=== PATIENT | male | born 1995 | race Caucasian/White ===

== ENCOUNTER 2017-04-22 13:45 | Emergency (ER) | payer OTHER ==
[2017-04-22 13:52] VITALS: RESP 18
--- NOTE | 2017-04-22 14:25 | XR ---
EXAMINATION TYPE: XR hand complete RT DATE OF EXAM: 04/22/2017 CLINICAL HISTORY: Right hand pain into wrist. TECHNIQUE: Frontal, lateral and oblique images of the right hand are obtained. COMPARISON: None. FINDINGS: There is no acute fracture/dislocation evident in the right hand. The joint spaces in the right hand appear within normal limits. The overlying soft tissue appears unremarkable. IMPRESSION: Unremarkable study.
--- NOTE | 2017-04-22 14:37 | ED ---
Upper Extremity HPI - General Chief Complaint: Extremity Injury, Upper Stated Complaint: Arm Pain Time Seen by Provider: 04/22/17 14:00 Source: patient, RN notes reviewed Mode of arrival: ambulatory Limitations: no limitations - History of Present Illness Initial Comments: This is a 21-year-old male who presents to the emergency department with chief complaint of right hand pain. He denies any specific injury or trauma. Patient states that he has been experiencing pain for one week. He states the pain is localized to the fourth and fifth digits of right hand with radiation to wrist and occasionally up to right elbow. He states that the pain is worse with movement and he has difficulty grasping objects. Patient states that when he does experience pain in the hand, his entire hand feels numb and there is tingling on the dorsal aspect of right hand. Denies fever, chills, chest pain, shortness of breath, abdominal pain, nausea or vomiting, constipation or diarrhea, dysuria or hematuria, headache or vision changes. - Related Data Home Medications Medication Instructions Recorded Confirmed No Known Home Medications [No 04/22/17 04/22/17 Known Home Medications] Allergies Allergy/AdvReac Type Severity Reaction Status Date / Time ibuprofen [From Motrin] Allergy Rash/Hives Verified 04/22/17 14:02 Review of Systems ROS Statement: Those systems with pertinent positive or pertinent negative responses have been documented in the HPI. ROS Other: All systems not noted in ROS Statement are negative. Past Medical History Past Medical History: No Reported History History of Any Multi-Drug Resistant Organisms: None Reported Past Surgical History: Ear Surgery Additional Past Surgical History / Comment(s): tubes in ears Past Psychological History: ADD/ADHD, Anxiety, Depression Smoking Status: Current every day smoker Past Alcohol Use History: Rare Past Drug Use History: None Reported General Exam - General Exam Comments Initial Comments: General: Awake and alert, well-developed; in no apparent distress. HEENT: Head atraumatic, normocephalic. Pupils are equal, round and reactive to light. Extraocular movements intact. Oropharynx moist without erythema or exudate. Neck: Supple. Normal ROM. Cardiovascular: Regular rate and rhythm. No murmurs, rubs or gallops. Chest symmetrical. Respiratory: Lungs clear to auscultation bilaterally. No wheezes, rales or rhonchi. Normal respiratory effort with no use of accessory muscles. Musculoskeletal: Tenderness to palpation of right 5th MCP joint with mild swelling. No erythema or deformities noted. Normal ROM of right hand and wrist. Sensation intact. Radial pulses 2+ equal and palpable bilaterally. Skin: [place], warm and dry without rashes or lesions. Neurological: Alert and oriented x3. CN II-XII grossly intact. Speech is fluent and answers are appropriate. No focal neuro deficits. Psychiatric: Normal mood and affect. No overt signs of depression or anxiety noted. Limitations: no limitations Course Vital Signs 04/22/17 13:48 Temperature 98.4 F Pulse Rate 80 Respiratory 18 Rate Blood Pressure 163/97 O2 Sat by Pulse 99 Oximetry Medical Decision Making - Medical Decision Making This is a 21-year-old male who presents with complaint of pain at ulnar aspect of right hand. X-ray revealed no acute abnormalities. Patient requests an SAMEERA bandage for extra support. He will be discharged home with recommendation to follow-up with a primary care provider. Patient is in agreement to the plan and voices understanding. All questions were answered. - Radiology Data Radiology results: report reviewed Right hand x-ray findings: There is no acute fracture/dislocation evident in the right hand. The joint spaces in the right hand appears within normal limits. The overlying soft tissue appears unremarkable. Disposition Clinical Impression: Right hand pain Disposition: HOME SELF-CARE Condition: Good Instructions: Peripheral Neuropathy (ED) Additional Instructions: Please follow up with orthopedics, Dr. Weeks within 1-2 days. Please follow up with primary care provider within 1-2 days. Return to emergency department if symptoms should worsen or any concerns arise. Referrals: None,Stated [Primary Care Provider] - 1-2 days Lucien Weeks MD [STAFF PHYSICIAN] - 1-2 days Time of Disposition: 14:57
[2017-04-22 14:52] VITALS: BP 138/86; PULSE 78; TEMP 98.1
== END 2017-04-22 15:00 | disposition home or self-care (01) ==
LOC: EC 13:45
DX: M79.641 Pain in right hand (principal); M79.89 Other specified soft tissue disorders; M79.644 Pain in right finger(s); M25.531 Pain in right wrist; M25.521 Pain in right elbow; F17.200 Nicotine dependence, unspecified, uncomplicated; Z88.6 Allergy status to analgesic agent
CPT/HCPCS: 99283

== ENCOUNTER 2018-08-13 11:36 | Emergency (ER) | payer OTHER ==
[2018-08-13 11:43] VITALS: RESP 18
[2018-08-13] MEDS ORDERED: HYDROcodone/APAP 7.5-325MG 1 EACH TAB PO ONE (12:06)
[2018-08-13] MEDS ORDERED: methylPREDNISolone SOD SUCCI 125 MG/2 ML VIAL IM ONE (12:06)
--- NOTE | 2018-08-13 12:11 | ED ---
General Adult HPI - General Chief complaint: Back Pain/Injury Stated complaint: Knee and back pain Time Seen by Provider: 08/13/18 11:54 Source: patient, RN notes reviewed, old records reviewed Mode of arrival: ambulatory Limitations: no limitations - History of Present Illness Initial comments: 23-year-old male patient passed medical history of chronic lumbar back pain presents to ED approximately 2 day exacerbation of lumbar back pain. Patient reports that it is As well as his right paralumbar region. Patient reports that he has had some tingling down both his legs. Patient denies any recent falls or trauma, strenuous exercise in the past 3 days. Patient reports that he has however been painting his house which does require some strain in back. Patient has a separate complaint of approximately 1 month of right knee pain. Patient describes this as a dull pain. Patient reports it is worse with exertion. Patient denies any injury to right knee. Patient denies any loss of bowel or bladder control, fever/chills, IV drug use, lower extremity weakness. Patient is ambulatory. Patient denies other complaints. Systemic: Pt denies fatigue, fever/chills, rash. Pt denies weakness, night sweats, weight loss. Neuro: Pt denies headache, visual disturbances, syncope or pre-syncope. HEENT: Pt denies ocular discharge or irritation, otalgia, rhinorrhea, pharyngitis or notable lymphadenopathy. Cardiopulmonary: Pt denies chest pain, SOB, heart palpitations, dyspnea on exertion. Abdominal/GI: Pt denies abdominal pain, n/v/d. : Pt denies dysuria, burning w/ urination, frequency/urgency. Denies new onset urinary or bowel incontinence. MSK: Pt denies loss of strength or function in extremities. Neuro: Pt denies new onset weakness, paresthesias. - Related Data Previous Rx's Medication Instructions Recorded Acetaminophen Tab [Tylenol] 1,000 mg PO TID 5 Days tablet 08/13/18 predniSONE 50 mg PO DAILY #4 tab 08/13/18 Allergies Allergy/AdvReac Type Severity Reaction Status Date / Time ibuprofen [From Motrin] Allergy Rash/Hives Verified 08/13/18 11:56 Review of Systems ROS Statement: Those systems with pertinent positive or pertinent negative responses have been documented in the HPI. ROS Other: All systems not noted in ROS Statement are negative. Past Medical History Past Medical History: No Reported History History of Any Multi-Drug Resistant Organisms: None Reported Past Surgical History: Ear Surgery Additional Past Surgical History / Comment(s): tubes in ears Past Psychological History: ADD/ADHD, Anxiety, Depression Smoking Status: Former smoker Past Alcohol Use History: Rare Past Drug Use History: None Reported General Exam - General Exam Comments Initial Comments: Constitutional: NAD, AOX3, Pt has pleasant affect. HEENT: NC/AT, trachea midline, neck supple, no lymphadenopathy. Posterior pharynx non erythematous, without exudates. External ears appear normal, without discharge. Mucous membranes moist. Eyes PERRLA, EOM intact. There is no scleral icterus. No pallor noted. Cardiopulmonary: RRR, no murmurs, rubs or gallops, no JVD noted. Lungs CTAB in anterior and posterior farrell. No peripheral edema. Abdominal exam: Abdomen soft and non-distended. Abdomen non-tender to palpation in all 4 quadrants. Bowel sounds active in LLQ. No hepatosplenomegaly. No ecchymosis Neuro: CN II-XII grossly intact. No nuchal rigidity. MSK: Psoas and quadricps strength 5/5 bilaterally. Lower extremity sensation intact. Heel to toe walking intact. Distal pulses intact and equal. No cervical or thoracic tenderness. Mild amount of lumbar and paralumbar tenderness. Straight leg raise positive bilaterally. No posterior calf tenderness bilaterally, homans sign negative bilaterally. Posterior tibialis and radial pulse +2 bilaterally. Sensation intact in upper and lower extremities. Full active ROM in upper and lower extremities, 5/5 stregnth. Limitations: no limitations Course Vital Signs 08/13/18 08/13/18 11:41 13:50 Temperature 97.7 F 98.4 F Pulse Rate 94 73 Respiratory 18 18 Rate Blood Pressure 140/86 158/94 O2 Sat by Pulse 98 97 Oximetry Medical Decision Making - Medical Decision Making 23-year-old male patient passed medical history of chronic lumbar back pain presents to ED approximately 2 day exacerbation of lumbar back pain. Patient reports that it is As well as his right paralumbar region. Patient reports that he has had some tingling down both his legs. Patient denies any recent falls or trauma, strenuous exercise in the past 3 days. Patient reports that he has however been painting his house which does require some strain in back. Patient has a separate complaint of approximately 1 month of right knee pain. Patient describes this as a dull pain. Patient reports it is worse with exertion. Patient denies any injury to right knee. Patient denies any loss of bowel or bladder control, fever/chills, IV drug use, lower extremity weakness. Patient is ambulatory. Patient denies other complaints. Pt VSS, afebrile. Physical exam displayed: Psoas and quadricps strength 5/5 bilaterally. Lower extremity sensation intact. Heel to toe walking intact. Distal pulses intact and equal. No cervical or thoracic tenderness. Mild amount of lumbar and paralumbar tenderness. Straight leg raise positive bilaterally. Pt pain well controlled in ED. Plain film of lumbar spine revealed mild degenerative disc disease at L4-L5 and L5-S1. No vertebral compression collapse or malalignment. Plain film of right knee displayed sequela of prior Tima-Schlatter disease. These findings were exokaubd ti The patient at length. Patient verbalized understanding. Patient to follow up with orthopedic consult 1-2 days. Patient prescribed 4 days of prednisone and tylenol. Pt to referred to [facility] to establish PCP. Pt to return to ED if new s/sx develop or if condition worsens in anyway. Case discussed with Dr. Doyle. Pt is not driving home. Disposition Clinical Impression: Strain of lumbar region, Right knee pain Disposition: HOME SELF-CARE Condition: Stable Instructions (If sedation given, give patient instructions): Low Back Strain ( ED), Knee Pain (ED) Additional Instructions: Patient to adhere to previously discussed treatment plan and will take medication(s) as directed. Patient to follow up with PCP in 1-2 days. Patient to return to ED if symptoms do not improve. [facility] to establish primary care provider. Please follow-up with orthopedic consult for continued evaluation of symptoms. Please return to ED if new signs symptoms develop or condition worsens in any way. Prescriptions: Acetaminophen Tab [Tylenol] 1,000 mg PO TID 5 Days tablet predniSONE 50 mg PO DAILY #4 tab Is patient prescribed a controlled substance at d/c from ED?: No Referrals: None,Stated [Primary Care Provider] - 1-2 days [facility]Bautista Frederick [NON-STAFF] - 1-2 days Jesus Kramer DO [Doctor of Osteopathic Medicine] - 1-2 days
--- NOTE | 2018-08-13 13:03 | XR ---
EXAMINATION TYPE: XR lumbar spine 2 or 3V DATE OF EXAM: 08/13/2018 COMPARISON: NONE HISTORY: 23-year-old male with pain TECHNIQUE: 3 views FINDINGS: 5 lumbar type vertebral bodies with small T12 ribs. There is appearance of mild degenerative disc spa ce narrowing at L4-L5 and L5-S1. Vertebral body heights are preserved and alignment is maintained. Sm all endplate Schmorl's nodes at T12-L1. IMPRESSION: 1. There may be mild degenerative disc disease at L4-L5 and L5-S1. 2. No vertebral compression collapse or malalignment.
--- NOTE | 2018-08-13 13:07 | XR ---
EXAMINATION TYPE: XR knee 4V RT DATE OF EXAM: 08/13/2018 COMPARISON: NONE HISTORY: 23-year-old male with pain TECHNIQUE: 4 views FINDINGS: Extensor mechanism appears intact but there is fragmentation at the tibial tuberosity. No knee joint effusion. The patella remains appropriately situated along the trochlear groove. No acute fracture, s ubluxation, or dislocation seen. IMPRESSION: 1. Sequela of prior Mclean-Schlatter's disease. 2. No acute osseous abnormality seen.
[2018-08-13 13:51] VITALS: BP 158/94; PULSE 73; TEMP 98.4
== END 2018-08-13 13:50 | disposition home or self-care (01) ==
LOC: EC 11:36
DX: S39.012A Strain of muscle, fascia and tendon of lower back, initial encounter (principal); M25.561 Pain in right knee; M51.36 Other intervertebral disc degeneration, lumbar region; M51.37 Other intervertebral disc degeneration, lumbosacral region; M92.51 Juvenile osteochondrosis of proximal tibia; R20.2 Paresthesia of skin; Z87.891 Personal history of nicotine dependence; Z88.6 Allergy status to analgesic agent; X58.XXXA Exposure to other specified factors, initial encounter
CPT/HCPCS: 72100; 73564; 99284; 96372; J2930

== ENCOUNTER 2023-11-07 17:42 | Emergency (ER) | payer OTHER ==
[2023-11-07 18:42] LABS: Partial Thromboplastin Time 25.3 sec (22.0-30.0); Prothrombin Time 11.1 sec (10.0-12.5)
[2023-11-07 18:48] LABS: ALT 23 U/L (4-49); AST 21 U/L (17-59); African American GFR (CKD) >90 (>60 ml/min/1.73 sqM); Albumin 4.4 g/dL (3.5-5.0); Alkaline Phosphatase 62 U/L (38-126); Amylase 129 U/L (30-110); Anion Gap 7 mmol/L; Blood Urea Nitrogen 16 mg/dL (9-20); Calcium 9.6 mg/dL (8.4-10.2); Carbon Dioxide 27 mmol/L (22-30); Chloride 108 mmol/L (98-107); Glucose 102 mg/dL (74-99); Lipase 534 U/L (23-300); Magnesium 1.9 mg/dL (1.6-2.3); Non-African American GFR(CKD) >90 (>60 ml/min/1.73 sqM); Potassium 3.5 mmol/L (3.5-5.1); Sodium 142 mmol/L (137-145); Total Bilirubin 0.6 mg/dL (0.2-1.3); Total Protein 7.4 g/dL (6.3-8.2)
[2023-11-07 18:49] LABS: Basophils # (A) 0.2 k/uL (0-0.2); Basophils % (A) 1 %; Eosinophils # (A) 0.3 k/uL (0-0.7); Eosinophils % (A) 2 %; HCT 48.7 % (39.0-53.0); Lymphocytes # (A) 3.6 k/uL (1.0-4.8); Lymphocytes % (A) 21 %; MCH 30.5 pg (25.0-35.0); MCHC 32.9 g/dL (31.0-37.0); MCV 92.8 fL (80.0-100.0); Mean Platelet Volume 7.2; Monocytes # (A) 1.2 k/uL (0-1.0); Monocytes % (A) 7 %; Neutrophils # (A) 11.8 k/uL (1.3-7.7); Neutrophils % (A) 68 %; Platelet Count 286 k/uL (150-450); RBC 5.25 m/uL (4.30-5.90); RDW 12.9 % (11.5-15.5); WBC 17.4 k/uL (3.8-10.6)
--- NOTE | 2023-11-07 18:57 | XR ---
EXAMINATION TYPE: XR chest 2V DATE OF EXAM: 11/07/2023 6:25 PM CLINICAL INDICATION:Male, 28 years old with history of Chest Pain; COMPARISON: None TECHNIQUE: XR chest 2V Frontal and lateral views of the chest. FINDINGS: Lungs/Pleura: There is no evidence of pleural effusion, focal consolidation, or pneumothorax. Pulmonary vascularity: Unremarkable. Heart/mediastinum: Cardiomediastinal silhouette is unremarkable. Musculoskeletal: No acute osseous pathology. IMPRESSION: No acute cardiopulmonary disease/process.
[2023-11-07 20:06] VITALS: TEMP 97.3
[2023-11-07 20:23] LABS: Appearance,Urine Clear (Clear); Bilirubin,Urine Negative (Negative); Blood,Urine Negative (Negative); Color,Urine Colorless; Glucose,Urine (UA) Negative (Negative); Ketones,Urine Negative (Negative); Leukocyte Esterase,Urine Negative (Negative); Nitrite,Urine Negative (Negative); Protein,Urine Negative (Negative); Specific Gravity,Urine 1.019 (1.001-1.035); Urobilinogen,Urine <2.0 mg/dL (<2.0)
--- NOTE | 2023-11-07 21:46 | CT ---
EXAMINATION TYPE: CT angio thor/abd pel aorta CT DLP: 2635.3 mGycm, Automated exposure control for dose reduction was used. DATE OF EXAM: 11/07/2023 9:33 PM COMPARISON: Chest radiograph 11/07/2023. CLINICAL INDICATION:Male, 28 years old with history of chest pain/back pain/abd pain/near syncope; PH H, chest pain, dizziness TECHNIQUE: Dissection protocol: Multiple axial CT images of the chest, abdomen, and pelvis were obtai neeraj prior and to the administration of IV contrast. 3-D reformats and maximum intensity projection fo rmat were performed on a separate workstation. Contrast used:100 ml mL of Isovue 370 without and with IV Contrast, Oral contrast used: FINDINGS: ARTERIAL VASCULATURE: The thoracic aorta is normal in course and caliber. There is no evidence of aor tic dissection, aneurysm or acute aortic injury. Great arch vessels patent and normal in course and c aliber. Abdominal aorta demonstrates normal course and caliber. The origins of the abdominal aortic b ranches are patent. PULMONARY ARTERIAL VASCULATURE: Normal caliber. No evidence of filling defect to suggest pulmonary em bolus. Lungs/pleura: The lung parenchyma appears unremarkable. Heart: Within normal limits. Mediastinum: No gross evidence of adenopathy. Lower Neck: No significant findings. Abdomen: Liver: Unremarkable. Gallbladder and Bile ducts: Unremarkable. Pancreas: Unremarkable. Spleen: Unremarkable. Adrenal glands: Unremarkable. Kidneys and Ureters: Unremarkable. No hydronephrosis. Bladder: Unremarkable. Reproductive: Unremarkable. Stomach and Bowel: Unremarkable. No evidence of bowel obstruction. Peritoneum: No evidence of pneumoperitoneum, free fluid, or adenopathy. Musculoskeletal: The osseous structures appear intact. Lymph nodes: No evidence of lymphadenopathy. Abdominal wall/soft tissues: Unremarkable. IMPRESSION: No evidence of aortic dissection or acute process.
--- NOTE | 2023-11-07 21:55 | ED ---
General Adult HPI - General Chief complaint: Chest Pain Stated complaint: Dizziness,chest pain Time Seen by Provider: 11/07/23 20:20 Source: patient, RN notes reviewed, old records reviewed Mode of arrival: ambulatory Limitations: no limitations - History of Present Illness Initial comments: Patient is a 28-year-old male who presents to the emergency department with multiple complaints. Has been having chronic low back pain, chronic right s houlder pain with rotator cuff injury, occasional chest pain, occasional nausea. Patient is a heavy drinker. Denies any diarrhea. Denies any cough. Symptoms come and go for over a week. Currently is only complaining of the right shoulder pain. He has no other acute complaints at this time. Presents for further evaluation.Endorse occasional lightheadedness as well which she currently does not have. Has been taking muscle relaxers with the alcohol that he drinks daily which may Be contributing to some of his symptoms. - Related Data Previous Rx's Medication Instructions Recorded Acetaminophen Tab [Tylenol] 1,000 mg PO TID 5 Days tablet 08/13/18 predniSONE 50 mg PO DAILY #4 tab 08/13/18 Meclizine [Antivert] 12.5 mg PO Q8HR PRN 5 Days #15 11/07/23 tablet Allergies Allergy/AdvReac Type Severity Reaction Status Date / Time ibuprofen [From Motrin] Allergy Rash/Hives Verified 08/13/18 11:56 Review of Systems ROS Statement: Those systems with pertinent positive or pertinent negative responses have been documented in the HPI. Review of Systems: CONST: Denies fever EYES: Denies blurry vision ENT: Denies nasal congestion C/V: Denies Chest pain RESP: Denies shortness of breath GI: Denies abdominal pain : Denies dysuria SKIN: Denies rash. MSK: Denies joint pain. NEURO: Denies headache ROS Other: All systems not noted in ROS Statement are negative. Past Medical History Past Medical History: No Reported History History of Any Multi-Drug Resistant Organisms: None Reported Past Surgical History: Ear Surgery Additional Past Surgical History / Comment(s): tubes in ears Past Psychological History: ADD/ADHD, Anxiety, Depression Smoking Status: Current every day smoker Past Alcohol Use History: Daily Past Drug Use History: Marijuana General Exam - General Exam Comments Initial Comments: General: Appears in no acute distress. HEAD: Normal with no signs of head trauma. EYES: PERRLA, EOMI, conjunctiva normal, no discharge. ENT: Hearing grossly intact, normal oropharynx. RESPIRATORY: Clear breath sounds bilaterally. No wheezes, rales, or rhonchi. C/V: Regular rate and rhythm. S1 and S2 auscultated, no edema, peripheral pulses 2+ and intact throughout ABD: Abd is soft, nontender, nondistended EXT: Normal range of motion, no obvious deformity SKIN: No rashes or lesions observed on exposed skin. NEURO: Alert and oriented x 4. Cranial nerves II-XII intact. No focal sensory or strength deficits. Limitations: no limitations Course Vital Signs 11/07/23 11/07/23 11/07/23 17:59 19:55 21:56 Temperature 97.6 F 97.3 F L Pulse Rate 101 H 80 90 Respiratory 18 16 18 Rate Blood Pressure 160/78 159/103 152/92 O2 Sat by Pulse 99 97 96 Oximetry Medical Decision Making - Medical Decision Making Was pt. sent in by a medical professional or institution (, PA, CONCRETE PANEL INSTALLER, urgent care, hospital, or penitentiary...) When possible be specific @ -No Did you speak to anyone other than the patient for history (EMS, parent, family, police, friend...)? What history was obtained from this source @ -No Did you review nursing and triage notes (agree or disagree)? Why? @ -I reviewed and agree with nursing and triage notes Were old charts reviewed (outside hosp., previous admission, EMS record, old EKG, old radiological studies, urgent care reports/EKG's, penitentiary records)? Report findings @ -No old charts were reviewed Differential Diagnosis (chest pain, altered mental status, abdominal pain women, abdominal pain men, vaginal bleeding, weakness, fever, dyspnea, syncope, headache, dizziness, GI bleed, back pain, seizure, CVA, palpatations, mental health, musculoskeletal)? @ -Differential Chest Pain: Stable Angina, Unstable Angina, STEMI, NSTEMI Aortic Dissection, Pneumothorax, Musculoskeletal, Esophageal Spasm GERD, Cholecystitis, Pancreatitis, Zoster, this is not meant to be an all-inclusive list. EKG interpreted by me (3pts min.). @ -As above X-rays interpreted by me (1pt min.). @ -Chest x-ray reveals no obvious acute cardiopulmonary process. CT interpreted by me (1pt min.). @ -CT angiogram of the chest abdomen pelvis negative for any obvious acute process. U/S interpreted by me (1pt. min.). @ -None done What testing was considered but not performed or refused? (CT, X-rays, U/S, labs)? Why? @ -None What meds were considered but not given or refused? Why? @ -None Did you discuss the management of the patient with other professionals (professionals i.e. , PA, CONCRETE PANEL INSTALLER, lab, RT, psych nurse, social services manager, tool room gear machine operator, teacher, workers' compensation hearings officer, counseling case manager)? Give summary @ -No Was smoking cessation discussed for >3mins.? @ -No Was critical care preformed (if so, how long)? @ -No Were there social determinants of health that impacted care today? How? (Homelessness, low income, unemployed, alcoholism, drug addiction, transportation, low edu. Level, literacy, decrease access to med. care, care home, rehab)? @ -No Was there de-escalation of care discussed even if they declined (Discuss DNR or withdrawal of care, Hospice)? DNR status @ -No What co-morbidities impacted this encounter? (DM, HTN, Smoking, COPD, CAD, Cancer, CVA, ARF, Chemo, Hep., AIDS, mental health diagnosis, sleep apnea, mor bid obesity)? @ -Alcohol abuse Was patient admitted / discharged? Hospital course, mention meds given and route, prescriptions, significant lab abnormalities, going to OR and other pertinent info. @ -Patient presents with multiple complaints, of which he does not have current chest pain, lightheadedness, nausea or vomiting. Does have chronic back issues. Workup was started in triage. Labs are remarkable for an undetectable troponin. Patient has a white count of 17 which is likely reactive. He has been on steroids. Remainder the labs are remarkable for slightly elevated amylase and lipase, undetectable troponin. Remainder the labs unremarkable. EKG shows no signs of acute ischemia. I did discuss results with the patient. I did offer analgesia medications and nausea meds which she declined. We discussed workup as symptoms have been ongoing for the last week, he is low risk. Heart score is low. However I did recommend CT imaging at this time to evaluate the aorta as he has multiple what appears to be nonconducted complaints. He was in agreement this plan. CT imaging of the chest abdomen pelvis negative for any obvious acute process. I updated the patient. He expressed understanding would like to go home at this time. He will be discharged home with meclizine. I counseled him on alcohol cessation. He was in agreement this plan. I will provide the patient with a prescription for meclizine. I instructed the patient to follow up with their PCP in the next 1-3 days. I provided contact information for follow up with PCP's. I explained that the patient should return to the emergency department if they experience any worsening symptoms. Strict return precautions were discussed with the patient. The patient expressed understanding of these instructions. I answered all questions that the patient had. The patient was discharged home in good condition with their prescriptions and follow up information. Undiagnosed new problem with uncertain prognosis? @ -No Drug Therapy requiring intensive monitoring for toxicity (Heparin, Nitro, Insulin, Cardizem)? @ -No Were any procedures done? @ -No Diagnosis/symptom? @ -Atypical chest pain, lightheadedness Acute, or Chronic, or Acute on Chronic? @ -Acute Uncomplicated (without systemic symptoms) or Complicated (systemic symptoms)? @ -Complicated Side effects of treatment? @ -No Exacerbation, Progression, or Severe Exacerbation? @ -No Poses a threat to life or bodily function? How? (Chest pain, [place], [place], pneumonia, PE, COPD, DKA, ARF, appy, cholecystitis, CVA, Diverticulitis, Homicidal, Suicidal, threat to staff... and all critical care pts) @ -Unlikely - Lab Data Result diagrams: 11/07/23 18:08 11/07/23 18:08 Lab Results 11/07/23 11/07/23 11/07/23 Range/Units 18:08 18:08 18:08 WBC 17.4 H (3.8-10.6) k/uL RBC 5.25 (4.30-5.90) m/uL Hgb 16.0 (13.0-17.5) gm/dL Hct 48.7 (39.0-53.0) % MCV 92.8 (80.0-100.0) fL MCH 30.5 (25.0-35.0) pg MCHC 32.9 (31.0-37.0) g/dL RDW 12.9 (11.5-15.5) % Plt Count 286 (150-450) k/uL MPV 7.2 Neutrophils % 68 % Lymphocytes % 21 % Monocytes % 7 % Eosinophils % 2 % Basophils % 1 % Neutrophils # 11.8 H (1.3-7.7) k/uL Lymphocytes # 3.6 (1.0-4.8) k/uL Monocytes # 1.2 H (0-1.0) k/uL Eosinophils # 0.3 (0-0.7) k/uL Basophils # 0.2 (0-0.2) k/uL PT 11.1 (10.0-12.5) sec INR 1.0 (<1.2) APTT 25.3 (22.0-30.0) sec Sodium 142 (137-145) mmol/L Potassium 3.5 (3.5-5.1) mmol/L Chloride 108 H (98-107) mmol/L Carbon Dioxide 27 (22-30) mmol/L Anion Gap 7 mmol/L BUN 16 (9-20) mg/dL Creatinine 0.96 (0.66-1.25) mg/dL Est GFR (CKD-EPI)AfAm >90 (>60 ml/min/1.73 sqM) Est GFR (CKD-EPI)NonAf >90 (>60 ml/min/1.73 sqM) Glucose 102 H (74-99) mg/dL Calcium 9.6 (8.4-10.2) mg/dL Magnesium 1.9 (1.6-2.3) mg/dL Total Bilirubin 0.6 (0.2-1.3) mg/dL AST 21 (17-59) U/L ALT 23 (4-49) U/L Alkaline Phosphatase 62 (38-126) U/L Troponin I (0.000-0.034) ng/mL Total Protein 7.4 (6.3-8.2) g/dL Albumin 4.4 (3.5-5.0) g/dL Amylase 129 H (30-110) U/L Lipase 534 H (23-300) U/L Urine Color Urine Appearance (Clear) Urine pH (5.0-8.0) Ur Specific [place] (1.001-1.035) Urine Protein (Negative) Urine Glucose (UA) (Negative) Urine Ketones (Negative) Urine Blood (Negative) Urine Nitrite (Negative) Urine Bilirubin (Negative) Urine Urobilinogen (<2.0) mg/dL Ur Leukocyte Esterase (Negative) 11/07/23 11/07/23 Range/Units 18:08 18:20 WBC (3.8-10.6) k/uL RBC (4.30-5.90) m/uL Hgb (13.0-17.5) gm/dL Hct (39.0-53.0) % MCV (80.0-100.0) fL MCH (25.0-35.0) pg MCHC (31.0-37.0) g/dL RDW (11.5-15.5) % Plt Count (150-450) k/uL MPV Neutrophils % % Lymphocytes % % Monocytes % % Eosinophils % % Basophils % % Neutrophils # (1.3-7.7) k/uL Lymphocytes # (1.0-4.8) k/uL Monocytes # (0-1.0) k/uL Eosinophils # (0-0.7) k/uL Basophils # (0-0.2) k/uL PT (10.0-12.5) sec INR (<1.2) APTT (22.0-30.0) sec Sodium (137-145) mmol/L Potassium (3.5-5.1) mmol/L Chloride (98-107) mmol/L Carbon Dioxide (22-30) mmol/L Anion Gap mmol/L BUN (9-20) mg/dL Creatinine (0.66-1.25) mg/dL Est GFR (CKD-EPI)AfAm (>60 ml/min/1.73 sqM) Est GFR (CKD-EPI)NonAf (>60 ml/min/1.73 sqM) Glucose (74-99) mg/dL Calcium (8.4-10.2) mg/dL Magnesium (1.6-2.3) mg/dL Total Bilirubin (0.2-1.3) mg/dL AST (17-59) U/L ALT (4-49) U/L Alkaline Phosphatase (38-126) U/L Troponin I <0.012 (0.000-0.034) ng/mL Total Protein (6.3-8.2) g/dL Albumin (3.5-5.0) g/dL Amylase (30-110) U/L Lipase (23-300) U/L Urine Color Colorless Urine Appearance Clear (Clear) Urine pH 6.0 (5.0-8.0) Ur Specific [place] 1.019 (1.001-1.035) Urine Protein Negative (Negative) Urine Glucose (UA) Negative (Negative) Urine Ketones Negative (Negative) Urine Blood Negative (Negative) Urine Nitrite Negative (Negative) Urine Bilirubin Negative (Negative) Urine Urobilinogen <2.0 (<2.0) mg/dL Ur Leukocyte Esterase Negative (Negative) - EKG Data -: EKG Interpreted by Me EKG Comments: 12-lead Electrocardiogram Interpretation Note EKG was reviewed and interpreted by myself. 12-lead ECG performed at 1808 is interpreted by me as revealing normal sinus rhythm at a rate of 94 beats per minute. [place] is normal. NV interval is 128 ms, QRS duration is 99 ms, QTc is 383 ms.. There were no ST or T wave abnormalities to suggest myocardial ischemia or injury. R wave progression across the precordium was satisfactory. By my interpretation this EKG is non-diagnostic for acute ischemia. Disposition Clinical Impression: Atypical chest pain, Light headedness Disposition: HOME SELF-CARE Condition: Good Instructions (If sedation given, give patient instructions): Chest Pain (ED) Prescriptions: Meclizine [Antivert] 12.5 mg PO Q8HR PRN 5 Days #15 tablet PRN Reason: Vertigo Is patient prescribed a controlled substance at d/c from ED?: No Referrals: None,Stated [Primary Care Provider] - 1-2 days Forms: Area PCPs Time of Disposition: 21:55
[2023-11-07 22:07] VITALS: BP 152/92; PULSE 90; RESP 18
== END 2023-11-07 21:33 | disposition home or self-care (01) ==
LOC: EC 17:42
DX: R07.89 Other chest pain (principal); R42 Dizziness and giddiness; G89.29 Other chronic pain; M54.50 Low back pain, unspecified; F10.10 Alcohol abuse, uncomplicated; F17.200 Nicotine dependence, unspecified, uncomplicated; Z88.6 Allergy status to analgesic agent
CPT/HCPCS: 36415; 93005; 80053; 82150; 83690; 83735; 84484; 85025; 85610; 85730; 81003; 71046; 71275; 74174; 99285; Q9967